=== PATIENT | female | born 1960 | race Caucasian/White ===

== ENCOUNTER → 2023-08-06 10:47 | Outpatient (REF) | payer MEDICARE, OTHER, SELFPAY | LOC: MRI 3T 10:47 | PROVIDERS: ATTENDING PHYSICIAN Orthopaedic Surgery; FAMILY PHYSICIAN Family Medicine | DX: M25.569 Pain in unspecified knee (principal) | CPT/HCPCS: 73721 ==

== ENCOUNTER → 2024-02-22 09:56 | Outpatient (REF) | payer MEDICARE, OTHER, SELFPAY | LOC: RAD 09:56 | PROVIDERS: ATTENDING PHYSICIAN Family Medicine | DX: E55.9 Vitamin D deficiency, unspecified (principal); E78.2 Mixed hyperlipidemia; Z13.6 Encounter for screening for cardiovascular disorders; M81.0 Age-related osteoporosis without current pathological fracture | CPT/HCPCS: 75571; 77080 ==

== ENCOUNTER → 2024-09-20 13:44 | Outpatient (REF) | payer MEDICARE, OTHER, SELFPAY | LOC: HWWDC 13:44 | PROVIDERS: ATTENDING PHYSICIAN Student in an Organized Health Care Education/Training Program; FAMILY PHYSICIAN Family Medicine | DX: Z12.31 Encounter for screening mammogram for malignant neoplasm of breast (principal) | CPT/HCPCS: 77063; 77067 ==

== ENCOUNTER → 2024-12-12 13:55 | Outpatient (REF) | payer MEDICARE, OTHER, SELFPAY | LOC: WDC 13:55 | PROVIDERS: ATTENDING PHYSICIAN Student in an Organized Health Care Education/Training Program; FAMILY PHYSICIAN Family Medicine | DX: R92.2 Inconclusive mammogram (principal) | CPT/HCPCS: 76641 ==

== ENCOUNTER 2025-05-30 21:17 | Emergency (ER) | payer MEDICARE, OTHER, SELFPAY ==
[2025-05-30 21:20] VITALS: BP 196/113
[2025-05-30 21:52] VITALS: BMI 25.3
--- NOTE | 2025-05-30 21:54 | EDRN ---
Pt felt 'off' this morning - face felt hot, tinnitus was 'super loud'. Pt took her BP and it was elevated over 200 sbp. After sitting and talking for awhile with friend, it decreased to 150/95. Pt say around all day, went upstairs to check her BP
and it was 200/105. No headache, visual disturbance, dizzy, n/v. No hx elevated BP.
[2025-05-30 21:58] VITALS: BP 177/102
[2025-05-30 22:00] VITALS: BP 176/94
--- NOTE | 2025-05-30 22:00 | EDRN ---
Pt was on crestor for about 3 weeks, had a lot of side effects that made her feel horrible. Pt was taken off crestor by her doctor this past week. Pt says her doctor will start her on something after the holiday,
--- NOTE | 2025-05-30 22:22 | ED.GENMED ---
History of Present Illness
General
Chief Complaint: Blood Pressure Problem
Source: patient
Exam Limitations: none
Time Seen by Provider: 05/30/25 22:04
History of Present Illness
History of Present Illness:
65-year-old female with history of hyperlipidemia presents with overall sensation of not feeling well today. She also notes having what she thought was indigestion and burning discomfort in the center of her chest last couple days. She noticed her
face felt flushed today she noticed increased ringing in her ears today and her friend who is a nurse checked her blood pressure and it was 200/105. No prior history of hypertension. She denies headache double vision blurry vision or vomiting. No
recent fever or illness. She follows regularly with Dr. Brody.
Past History
Past History
ED Past Medical History: None
ED Past Surgical History: and Other (Skin surgery)
Social History
Tobacco: Non-smoker
Personal:
Living: with family
Phy Exam
Physical Exam
Physical Exam:
General: Well-appearing female no acute respiratory distress
HEENT: Normal cephalic atraumatic
Heart: Regular rate and rhythm
Lungs: Clear no wheeze
Abdomen is soft nontender extremities: No cyanosis or edema
Skin warm no rash
Course
Orders/Labs/Results
Orders:
Orders
05/30/25 22:19
Electrocardiogram (*1) Urgent
Reason for Study: Chest Pain
EKG- Treatment ONCE
05/30/25 22:31
Complete Blood Count/With Diff Urgent
Comprehensive Metabolic Panel Urgent
Troponin I Urgent
05/31/25 08:00
Amlodipine [Norvasc] 5 mg PO DAILY
Abnormal Lab Results
05/30/25
22:31
RBC 3.97 L 10^6/uL
(4.20-5.40)
Hgb 11.9 L g/dL
(12.0-16.0)
Hct 35.5 L %
(37.0-47.0)
MPV 10.9 H fL
(7.4-10.4)
Absolute Monos (auto) 0.7 H 10^3/uL
(0.1-0.6)
Neutrophils % 36.9 L %
(42.2-75.2)
Monocytes % 13.7 H %
(1.7-9.3)
05/30/25 22:31
05/30/25 22:31
Vital Signs
Initial and Last Documented VS:
Initial Vital Signs
Temp Pulse Resp BP Pulse Ox
98.0 F 74 18 196/113 99
05/30/25 21:20 05/30/25 21:20 05/30/25 21:20 05/30/25 21:20 05/30/25 21:20
Last Documented Vital Signs
Temp Pulse Resp BP Pulse Ox
98.0 F 64 12 164/90 99
05/30/25 21:20 05/30/25 23:30 05/30/25 23:30 05/30/25 23:30 05/30/25 22:24
MDM/Problems Addressed
Differential Diagnosis Includes:
Patient with overall sensation of unwell feeling. She had elevated blood pressure readings at home and presented here. She does admit to having some chest discomfort over the last 2 days. She chalked this off to reflux which was maybe the case
but given the complaint of chest discomfort EKG was ordered troponin pending. Most recent blood pressure check 176/94.
*Pulse Oximetry
SaO2: 99
Oxygen Mode of Delivery: Room air
Patient hypoxic: no
*Critical Care Note
Total Time (30-74mins, 75-104mins- exclusive of procedures): Not Applicable
Update Note
Update Note:
EKG personally reviewed and demonstrates sinus rhythm with a rate of 72 no ischemic changes
Labs reviewed no significant abnormality. Blood pressure still elevated most recent 164/90 P will start on 5 mg of amlodipine and have her follow-up with her supervisory geographer. Stable for discharge
ED Attending Note
-
Portions of this chart may have been created with voice recognition software.� Occasional wrong word or��sound alike� substitutions may have occurred due to the inherent limitations of voice recognition software.
Discharge Plan
Departure
Patient Disposition: Home (Routine Discharge)
Date of Disposition: 05/30/25
Time of Disposition: 23:42
Patient with high blood pressure during this ER visit?: Yes
Discharge Problem:
Elevated blood pressure reading
Instructions: Chest Pain CBC Follow Up, BLOOD PRESSURE
Prescriptions:
New
amlodipine 5 mg tablet
5 mg PO DAILY Qty: 30 0RF
Referrals:
Francesco Brody DO [Family Provider, Family Practice]
Activity Restrictions/Additional Instructions:
Use amlodipine as directed. Follow-up with cardiology. Return here for worsening symptoms otherwise
Interventions
Interventions:
*Risk Screen - Suicide Last Done: 05/30/25 21:52
*General Assessment Last Done: 05/30/25 21:20
*Neglect/Abuse Screening Last Done: 05/30/25 21:52
*ED- Fall Risk Assessment Last Done: 05/30/25 22:06
*ED COVID-19 Vaccine History Last Done: 05/30/25 21:52
*ED Influenza Vaccine History Last Done: 05/30/25 21:52
ED- Cardiac Assessment Last Done: 05/30/25 22:06
ED- Neurological Assessment Last Done: 05/30/25 22:06
ED- Pulmonary Assessment Last Done: 05/30/25 22:06
Discharge Date and Time
Print Language: INDONESIAN
[2025-05-30 22:30] VITALS: BP 161/96
[2025-05-30 22:44] LABS: Hematocrit 35.5 % (37.0-47.0); Hemoglobin 11.9 g/dL (12.0-16.0); Mean Corp Hgb Conc. 33.5 g/dL (33.0-37.0); Mean Corpuscular Volume 89.4 fL (81.0-99.0); Nucleated Red Blood Cells % 0 %; Platelet Count 223 10^3/uL (130-400); Red Cell Dist. Width 12.0 % (11.5-14.5)
[2025-05-30 23:00] VITALS: BP 153/105
[2025-05-30 23:04] LABS: ALT (SGPT) 20 U/L (0-35); AST (SGOT) 27 U/L (14-36); Albumin 4.3 g/dl (3.5-5.0); Alkaline Phosphatase 79 U/L (38-126); Blood Urea Nitrogen 15 mg/dl (7-17); Calcium 9.7 mg/dl (8.4-10.2); Carbon Dioxide 30 mmol/L (22-30); Chloride 105 mmol/L (98-107); Estimated Creatinine Clearance 61 ml/min; Glucose 96 mg/dl (70-99); Potassium 4.3 mmol/L (3.5-5.1); Sodium 138 mmol/L (135-145); Total Protein 7.0 g/dl (6.3-8.2); eGFR > 60.00
[2025-05-30 23:15] LABS: Troponin I 0.023 ng/ml
[2025-05-30 23:30] VITALS: BP 164/90
[2025-05-30] MEDS: NORVASC 5 MG PO (23:55)
== END 2025-05-31 00:02 | disposition home or self-care (01) ==
LOC: EMR 21:17
PROVIDERS: Physician Assistant; EMERGENCY PHYSICIAN Emergency Medicine; FAMILY PHYSICIAN Family Medicine
DX: R03.0 Elevated blood-pressure reading, without diagnosis of hypertension (principal); R07.89 Other chest pain; E78.00 Pure hypercholesterolemia, unspecified; Z79.899 Other long term (current) drug therapy
CPT/HCPCS: 99283; 80053; 84484; 85025; 93005

== ENCOUNTER → 2025-06-04 13:52 | Outpatient (REF) | payer MEDICARE, OTHER, SELFPAY | LOC: HWRCS 13:52 | PROVIDERS: ATTENDING PHYSICIAN Internal Medicine Cardiovascular Disease; FAMILY PHYSICIAN Family Medicine | DX: R03.0 Elevated blood-pressure reading, without diagnosis of hypertension (principal); R07.2 Precordial pain | CPT/HCPCS: 93306 ==

== ENCOUNTER → 2025-06-05 10:30 | Outpatient (REF) | payer MEDICARE, OTHER, SELFPAY | LOC: RCS 10:30 | PROVIDERS: ATTENDING PHYSICIAN Internal Medicine Cardiovascular Disease; FAMILY PHYSICIAN Family Medicine | DX: R07.2 Precordial pain (principal) | CPT/HCPCS: 93017 ==